=== PATIENT | male | born 1975 | race Caucasian/White ===

== ENCOUNTER 2023-04-29 10:09 | Inpatient (IN) | payer BC ==
[~2023-04-29] VITALS: Ht 180.3 cm; Wt 106.4 kg
[~2023-04-29 10:09] MED LIST: BACTRIM DS 8001 TAB PO; BENADRYL25 M1 PO; CLINDAMYCIN150 MG PO; FLAGYL500 MG PO; ZANTAC150 MG PO
[2023-05-12] MEDS ORDERED: Acetaminophen 500 MG TAB PO SCH (08:15)
[2023-05-12] MEDS ORDERED: Gabapentin 100 MG CAP PO SCH (08:15)
[2023-05-12] MEDS ORDERED: metroNIDAZOLE 500 MG/100 ML IVPB IV SCH (08:15)
[2023-05-12] MEDS ORDERED: Celecoxib 200 MG CAP PO SCH (08:15)
[2023-05-12] MEDS ORDERED: LR 1,000 ML IV SCH (09:45)
[2023-05-12] MEDS ORDERED: Ondansetron 4 MG/2 ML VIAL IV SCH (09:45)
[2023-05-12] MEDS ORDERED: Meclizine 25 MG TAB PO SCH (09:45)
[2023-05-12] MEDS ORDERED: Scopolamine 1 MG Delivered 3-Day PATCH TD SCH (09:45)
[2023-05-13] VITALS (9 sets, daily range): BP systolic 103–117; BP diastolic 68–76; PULSE 84–101
[2023-05-13] MEDS ORDERED: Ondansetron 4 MG/2 ML VIAL IV PRN ×2 (08:00→16:45)
[2023-05-13] MEDS ORDERED: fentaNYL 50 MCG/ML 2 ML VIAL IV PRN ×2 (08:00)
[2023-05-13] MEDS ORDERED: hydrALAZINE 20 MG/ML 1 ML VIAL IV PRN (08:00)
[2023-05-13] MEDS ORDERED: droPERidol 2.5 MG/ML 2 ML VIAL IV PRN (08:00)
[2023-05-13] MEDS ORDERED: HYDROmorphone 2 MG/1 ML VIAL IV PRN (08:00)
[2023-05-13] MEDS ORDERED: Midazolam 2 MG/2 ML VIAL ONE (11:00)
[2023-05-13] MEDS ORDERED: fentaNYL 50 MCG/ML 5 ML VIAL ONE (11:00)
[2023-05-13] MEDS ORDERED: Rocuronium 50 MG/5 ML Multi-Dose VIAL ONE ×2 (11:00→14:48)
[2023-05-13] MEDS ORDERED: NS 10 ML IV ONE (11:01)
[2023-05-13] MEDS ORDERED: Ondansetron 4 MG/2 ML VIAL ONE (11:01)
[2023-05-13] MEDS ORDERED: dexAMETHasone 10 MG/ML VIAL ONE (11:01)
[2023-05-13] MEDS ORDERED: FLAGYL500 MG PO (11:13)
[2023-05-13] MEDS ORDERED: NEOMYCIN S500 MG/TAB PO (11:13)
[2023-05-13 11:31] LABS: BASO # 0.1 K/mm3 (0.0-0.2); BASO % 0.6 % (0.0-2.0); EOS # 0.2 K/mm3 (0.0-0.7); EOS % 1.6 % (0.0-4.0); GRAN # 8.1 K/mm3 (1.4-6.5); GRAN % 74.6 % (42.2-75.2); HEMATOCRIT 46.4 % (42.0-52.0); HEMOGLOBIN 16.2 g/dl (13.5-18.0); LYMPH # 1.6 K/mm3 (1.2-3.4); LYMPH % 15.1 % (20.0-51.0); MEAN CELL VOLUME 87 fl (80.0-100.0); MEAN CORPUSCULAR HEMOGLOBIN 30 pg (27-31); MEAN CORPUSCULAR HGB CONC 35 g/dl (33.0-37.0); MEAN PLATELET VOLUME 9.6 fl (7.4-10.4); MONO # 0.9 K/mm3 (0.1-0.6); MONO % 7.9 % (1.7-9.3); PLATELET COUNT 279 K/mm3 (130-400); RED BLOOD COUNT 5.36 M/mm3 (4.20-5.60); REDCELL DISTRIBUTION WIDTH-CV 13.1 % (11.5-14.5)
[2023-05-13 11:44] LABS: CREATININE, serum 0.87 mg/dL (0.72-1.25); POTASSIUM 4.1 mmol/L (3.5-4.5)
[2023-05-13] MEDS ORDERED: Phenylephrine 10 MG/ML VIAL ONE (12:36)
[2023-05-13] MEDS ORDERED: NS 100 ML IV ONE (12:36)
--- NOTE | 2023-05-13 14:36 | NUR ---
1045 Pt ambulatory to bay 1 with a steady gait, breathing even and unlabored. Pt is alert and oriented, accompanied by his girlfriend and twin sister. Consents reviewed and signed by pt. IV established. LR infusing via dial a flow at 100ml/hr. Call light in reach. Warm blankets provided.
[2023-05-13] MEDS ORDERED: fentaNYL 50 MCG/ML 2 ML VIAL ONE (15:35)
[2023-05-13] MEDS ORDERED: Morphine 4 MG/ML VIAL IV PRN (16:45)
[2023-05-13] MEDS ORDERED: oxyCODONE 5 MG TAB PO PRN ×2 (16:45)
[2023-05-13] MEDS ORDERED: LR 1,000 ML IV SCH (16:45)
[2023-05-13] MEDS ORDERED: Naloxone 0.4 MG/ML VIAL IV PRN (16:45)
[2023-05-13] MEDS ORDERED: Acetaminophen 500 MG TAB PO SCH (16:52)
--- NOTE | 2023-05-13 16:58 | NUR ---
PATIENT TO FLOOR AT APPROXIMATLY 1650. PATIENT DROWSY, BUT AROUSABLE. LAP SITES X4 WITH BANDAIDS, ONE LOW TRANSVERSE WITH METAPOR TAPE, CDI. BARRETT TO DD WITH SADA OUTPUT. SCDS APPLIED. INTAKE PERFORMED. ASSESSMENT PERFORMED. POST OP VITALS RUNNING. NO FURTHER NEEDS. CALL LIGHT IN REACH.
--- NOTE | 2023-05-13 19:47 | NUR ---
report received from lidia cruz. pt resting in bed, equal and unlabored breaths noted. pt remains on post op vitals wnl. call light in reach. all needs met at this time.
[2023-05-13] MEDS ORDERED: Celecoxib 200 MG CAP PO SCH (21:00)
[2023-05-14] VITALS (13 sets, daily range): BP systolic 97–125; BP diastolic 67–78; PULSE 94–113; TEMP 97.9–99.3
--- NOTE | 2023-05-14 01:14 | NUR ---
shift assessment complete, see documentation. pt vss. post op vitals complete. pt c/o intense abd pain rated 9/10. prn morphine administered at 2000. pt did find relief after prn but began c/o increased abd pain again rated an 8/10. prn oxycodone administered per orders at 2303. pt now resting with minimal pain. call light in reach. all needs met at this time.
--- NOTE | 2023-05-14 02:44 | NUR ---
pt reporting increased abd pain and nausea. prn morphine and zofran administered per orders. pt did vomit once with no blood. after vomiting, pt reported he no longer has the urge but is feeling the pain. pt vss. pt ambulated the waggoner with sba. pt had unsteady gait at first but slowly began getting his footing. pt made it approximately 30 feet before requesting to turn around. pt now back in bed. call light in reach. all needs met at this time.
--- NOTE | 2023-05-14 06:53 | NUR ---
pt reporting increased pain and rating it 4/10. prn requested. prn oxycodone administered per orders. call light in reach. all needs met at this time.
--- NOTE | 2023-05-14 08:15 | NUR ---
Pt. sitting up in bed. Pt. is A&OX3, assessment complete. IV to lt. hand patent, IV fluids stopped at this time. Pt. tolerating Clear liquid diet. Orders to discontinue west catheter. FIELD REIMBURSEMENT MANAGER student from [facility] removed west catheter under this nurse's supervision. Pt. tolerated well. Pt. then ambulated in the waggoner. Minimal assist with standing and independent with ambulation. See Pain scale and mar for intervientions on pain. Pt. sitting in chair after ambulation. Pt. denies further needs, call light within reach.
[2023-05-14 08:35] LABS: HEMATOCRIT 41.2 % (42.0-52.0)
[2023-05-14 08:54] LABS: CALCIUM 9.2 mg/dL (8.4-10.2); CREATININE, serum 0.83 mg/dL (0.72-1.25); POTASSIUM 4.2 mmol/L (3.5-4.5)
--- NOTE | 2023-05-14 10:37 | NUR ---
Orchestra Teacher met with patient to discuss discharge planning. Patient lives in [place] with his life partner, Annetta (ph#[phone]) who is at bedside. Patient sees Dr. Mayo for primary care and obtains medications from [facility] with no difficulties. Patient does not use any DME and is independent with ADLS. Patient is employed by [employer]. SW discussed Advance Directives with patient and he stated the person he previously designated as DPOA-HC is now so he would like to complete a new form. SW assisted patient in completing a new form and patient chose to designate Annetta. JACE and JACE Trujillo provided witness signature. JACE placed a copy in chart then provided original and copies to patient. Discharge Plan; Home
--- NOTE | 2023-05-14 13:19 | NUR ---
Initial visit; Patient thanked Unhairer for looking in on him and would like to be included in Unhairer's prayers. Patient had a good support system with his and mother present.
--- NOTE | 2023-05-14 20:01 | NUR ---
report received from sharmila cruz. pt resting in bed watching tv. call light in reach. all needs met at this time.
--- NOTE | 2023-05-14 20:30 | NUR ---
pt c/o increased abd pain. pt requested tylenol for 4/10 pain. too early for scheduled tylenol. prn oxycodone administered per orders. pt ambulated halls with sba and steady gait. pt tolerated ambulation well. pt now back in bed. call light in reach. all needs met at this time.
--- NOTE | 2023-05-14 20:34 | NUR ---
shift assessment complete, see documentation. call light in reach. all needs met at this time.
[2023-05-15] VITALS (12 sets, daily range): BP systolic 102–124; BP diastolic 70–83; PULSE 102–108; TEMP 97.8–98.5
--- NOTE | 2023-05-15 05:03 | NUR ---
pt doing well tonight. pt ambulating ind with steady gait. pt rating pain a stable 3/10. pt reporting scheduled tylenol has been controlling pain. pt also reporting now passing gas and having a BM. call light in reach. all needs met at this time.
[2023-05-15 06:57] LABS: BASO % 0.3 % (0.0-2.0); EOS % 0.1 % (0.0-4.0); GRAN # 9.8 K/mm3 (1.4-6.5); GRAN % 85.2 % (42.2-75.2); HEMATOCRIT 38.1 % (42.0-52.0); HEMOGLOBIN 13.1 g/dl (13.5-18.0); LYMPH # 0.8 K/mm3 (1.2-3.4); LYMPH % 7.2 % (20.0-51.0); MEAN CELL VOLUME 88 fl (80.0-100.0); MEAN CORPUSCULAR HEMOGLOBIN 30 pg (27-31); MEAN CORPUSCULAR HGB CONC 34 g/dl (33.0-37.0); MEAN PLATELET VOLUME 9.8 fl (7.4-10.4); MONO # 0.8 K/mm3 (0.1-0.6); MONO % 6.8 % (1.7-9.3); PLATELET COUNT 194 K/mm3 (130-400); RED BLOOD COUNT 4.34 M/mm3 (4.20-5.60)
--- NOTE | 2023-05-15 13:21 | NUR ---
PT UP AMBULATING IN HALLS INDEPENDENTLY. PT REPORTING EMESIS. TOO EARLY FOR NEXT DOSE OF ZOFRAN. SPRITE AND SODA CRACKERS PROVIDED.
[2023-05-16] VITALS (9 sets, daily range): BP systolic 100–116; BP diastolic 70–78; PULSE 92–96; TEMP 97.2–98.5
--- NOTE | 2023-05-16 04:10 | NUR ---
NURSING SHIFT ASSESSMENT COMPLETED. THE PATIENT WAS ALERT AND ORIENTED. THE PATIENT REPORTED ABD PAIN WITH ACTIVITY 08/31. PRN PAIN MEDICATIONS AND SCHEDULE REVIEWED. THE PATIENT HAD N/V DURING THE DAY AND ZOFRAN WAS PROVIDED. WILL MONITOR. THE PATIENT IS UP INDEPENDENTLY IN THE ROOM WITH A STEADY GAIT. CALL LIGHT AVAILABLE. BED IN LOW POSITION.
[2023-05-16 06:22] LABS: BASO % 0.2 % (0.0-2.0); EOS % 0.3 % (0.0-4.0); GRAN # 7.4 K/mm3 (1.4-6.5); GRAN % 77.1 % (42.2-75.2); HEMOGLOBIN 12.3 g/dl (13.5-18.0); LYMPH # 1.4 K/mm3 (1.2-3.4); LYMPH % 14.8 % (20.0-51.0); MEAN CELL VOLUME 88 fl (80.0-100.0); MEAN CORPUSCULAR HEMOGLOBIN 30 pg (27-31); MEAN CORPUSCULAR HGB CONC 34 g/dl (33.0-37.0); MEAN PLATELET VOLUME 9.9 fl (7.4-10.4); MONO # 0.7 K/mm3 (0.1-0.6); MONO % 7.4 % (1.7-9.3); PLATELET COUNT 208 K/mm3 (130-400); RED BLOOD COUNT 4.12 M/mm3 (4.20-5.60); REDCELL DISTRIBUTION WIDTH-CV 13.2 % (11.5-14.5)
[2023-05-16 06:32] LABS: HEMATOCRIT 36.2 % (42.0-52.0)
[2023-05-16 06:39] LABS: CALCIUM 9.1 mg/dL (8.4-10.2); CREATININE, serum 0.76 mg/dL (0.72-1.25); POTASSIUM 3.9 mmol/L (3.5-4.5)
--- NOTE | 2023-05-16 09:45 | NUR ---
Patient resting in bed. rounded this am, Plan of care reviewed. Patient aware to not eat until after scan. He denies nausea at this time. Continues to have pain to left side of abdomen. Not wanting to take pain medication at this time. He ambulated halls independently. Will monitor
[2023-05-16] MEDS ORDERED: NS 100 ML IV SCH (11:37)
[2023-05-16] MEDS ORDERED: Iohexol 300 - 100 ML VIAL IV ONE (11:37)
--- NOTE | 2023-05-16 13:40 | NUR ---
Patient resting in bed. He ambulated halls with significant other. Continue to encourage activity. I discussed using IS, he was not thrilled. was called and made aware that CT scan completed, he verfied patient can eat. Patient ate a small lunch, without nausea, but reports feeling full fast. We discussed smaller more frequest meals. Patient agreeable to taking tylenol, we discussed not taking medications on an empty stomch to avoid nausea. Patient given his Lovenox injection, was late due to awaiting CT scan to be completed. Patient also reports bowel activity with flatus and BM. Will monitor
--- NOTE | 2023-05-16 17:46 | NUR ---
rounded and discharge orders obtained. Patient ready to get home. His significant other taking him. All discharge education reviewed. We reviewed incision cares. Activity restrictions reviwed. Patient aware of imporance of nutrition and low fiber diet. Patient wheeled out with all belongings. IV DC. Patient aware [facility] need [facility] and calling for questions and or concerns.
== END 2023-05-16 17:49 | disposition home or self-care (01) | DRG 331 ==
LOC: SURG 05-13 10:19 → INPTSU 05-13 10:19 → SURG 05-13 12:30
PROVIDERS: Nurse Anesthetist, Certified Registered; ADMIT Surgery
PROC: 0DNL4ZZ Release Transverse Colon, Percutaneous Endoscopic Approach (ICD-10-PCS; 2023-05-13)
PROC: 0DBG4ZZ Excision of Left Large Intestine, Percutaneous Endoscopic Approach (ICD-10-PCS; principal; 2023-05-13 12:30)
DX: K57.20 Diverticulitis of large intestine with perforation and abscess without bleeding (principal); Z88.1 Allergy status to other antibiotic agents; Z88.0 Allergy status to penicillin
CPT/HCPCS: A4314; A9284; J0690; J1100; J1650; J1836; J2250; J2270; J2371; J2405; J2704; J2795; J3010; J7120; Q9967

== ENCOUNTER 2023-11-24 17:43 | Inpatient (IN) | payer BC ==
[~2023-11-24] VITALS: Ht 180.3 cm; Wt 103.3 kg
[~2023-11-24 17:43] MED LIST changes: +NEOMYCIN S500 MG/TAB PO
[2023-11-24] MEDS ORDERED: fentaNYL 50 MCG/ML 2 ML VIAL IV ONE ×2 (18:00→21:30)
[2023-11-24 18:09] LABS: BASO # 0.1 K/mm3 (0.0-0.2); BASO % 0.8 % (0.0-2.0); EOS # 0.3 K/mm3 (0.0-0.7); EOS % 3.2 % (0.0-4.0); GRAN # 3.8 K/mm3 (1.4-6.5); GRAN % 45.3 % (42.2-75.2); HEMATOCRIT 40.8 % (42.0-52.0); HEMOGLOBIN 13.6 g/dl (13.5-18.0); LYMPH # 3.4 K/mm3 (1.2-3.4); LYMPH % 40.9 % (20.0-51.0); MEAN CELL VOLUME 90 fl (80.0-100.0); MEAN CORPUSCULAR HEMOGLOBIN 30 pg (27-31); MEAN CORPUSCULAR HGB CONC 33 g/dl (33.0-37.0); MEAN PLATELET VOLUME 9.8 fl (7.4-10.4); MONO # 0.8 K/mm3 (0.1-0.6); MONO % 9.6 % (1.7-9.3); PLATELET COUNT 305 K/mm3 (130-400); RED BLOOD COUNT 4.53 M/mm3 (4.20-5.60); REDCELL DISTRIBUTION WIDTH-CV 12.3 % (11.5-14.5)
[2023-11-24 18:11] LABS: INR 1.1 (0.8-3.0); PROTHROMBIN TIME 12.1 SECONDS (9.7-12.8)
[2023-11-24 18:14] LABS: PARTIAL THROMBOPLASTIN TIME 34.3 SECONDS (26.0-37.0)
[2023-11-24 18:24] LABS: ALBUMIN 3.5 g/dL (3.5-5.0); BILIRUBIN,TOTAL 0.6 mg/dL (0.2-1.2); CALCIUM 9.2 mg/dL (8.4-10.2); MAGNESIUM 1.9 mg/dL (1.6-2.6); POTASSIUM 3.5 mEq/L (3.5-4.5); TOTAL PROTEIN 7.2 g/dl (6.2-8.1)
[2023-11-24 18:31] LABS: TROPONIN-I 0.01 ng/mL (0.00-0.033)
[2023-11-24] MEDS ORDERED: LORazepam 0.5 MG TAB PO ONE (21:00)
[2023-11-24] MEDS ORDERED: Iohexol 300 - 100 ML VIAL IV ONE (21:39)
[2023-11-24] MEDS ORDERED: NS 50 ML IV ONE (21:40)
[2023-11-24] MEDS ORDERED: Ondansetron 4 MG/2 ML VIAL IV ONE (23:00)
[2023-11-24] MEDS ORDERED: PROBIOTIC BLEN1 EACH PO (23:25)
[2023-11-24] MEDS ORDERED: LR 1,000 ML IV SCH (23:30)
[2023-11-24] MEDS ORDERED: HYDROmorphone 0.5 MG/0.5 ML SYRINGE IV PRN (23:30)
[2023-11-24] MEDS ORDERED: Ondansetron 4 MG/2 ML VIAL IV PRN (23:30)
--- NOTE | 2023-11-24 23:49 | NUR ---
RECIEVED PT FROM ED
[2023-11-25] VITALS (14 sets, daily range): BP systolic 99–171; BP diastolic 61–88; PULSE 62–83; TEMP 97.5–99.1
--- NOTE | 2023-11-25 01:12 | NUR ---
PT RECIEVED FROM ED. ASSESSMENT COMPLETED EARLIER. PT COMPLAINS OF 7/10 PAIN. SKIN IS CLEAN DRY AND INTACT WITH NO BREAKDOWN. MEDICATIONS ADMINISTERED PER EMAR. MOUTH SWABS IN ROOM WITH PATIENT. SONIYA CONTACTED AT [id number], THIS NURSE ASKED IF PT COULD HAVE ICE CHIPS, PROVIDER STATES THAT THE PT CAN HAVE ICE CHIPS VERY SPARINGLY. CALL LIGHT IS WITHIN REACH, BED IS IN LOWEST POSITON. NO COMPLAINTS AT THIS TIME. PT IS CURRENTLY IN BED.
--- NOTE | 2023-11-25 05:05 | NUR ---
PT IS IN BED. OVERNIGHT HAS BEEN UNEVENTFUL. CALL LIGHT IS WITHIN REACH. NO NEEDS AT THIS TIME.
[2023-11-25 06:21] LABS: BASO % 0.3 % (0.0-2.0); EOS # 0.1 K/mm3 (0.0-0.7); EOS % 0.6 % (0.0-4.0); GRAN # 10.1 K/mm3 (1.4-6.5); GRAN % 81.1 % (42.2-75.2); HEMATOCRIT 39.7 % (42.0-52.0); HEMOGLOBIN 13.4 g/dl (13.5-18.0); LYMPH # 1.2 K/mm3 (1.2-3.4); LYMPH % 9.5 % (20.0-51.0); MEAN CELL VOLUME 88 fl (80.0-100.0); MEAN CORPUSCULAR HEMOGLOBIN 30 pg (27-31); MEAN CORPUSCULAR HGB CONC 34 g/dl (33.0-37.0); MEAN PLATELET VOLUME 10.1 fl (7.4-10.4); MONO % 8.2 % (1.7-9.3); PLATELET COUNT 246 K/mm3 (130-400); RED BLOOD COUNT 4.49 M/mm3 (4.20-5.60); REDCELL DISTRIBUTION WIDTH-CV 12.3 % (11.5-14.5)
[2023-11-25 06:46] LABS: ALBUMIN 3.2 g/dL (3.5-5.0); BILIRUBIN,TOTAL 1.1 mg/dL (0.2-1.2); CREATININE, serum 0.79 mg/dL (0.72-1.25); POTASSIUM 3.8 mEq/L (3.5-4.5); TOTAL PROTEIN 6.6 g/dl (6.2-8.1)
--- NOTE | 2023-11-25 08:00 | NUR ---
PATIENT IS ORIENTED BUT DROWSY. FLAT AFFECT. VSS. REPORTS MILD ABD PAIN AND DENIES NEED FOR PAIN MEDS. ABD IS ROUND, SOFT AND WITH HYPOACTIVE BOWL SOUNDS. NO C/O N/V. IV FLUIDS INFUSING VIA PUMP INTO LEFT AC. HE REPORTS HE HAS PASSED A LITTLE GAS, NO BM. PATIENT RECENTLY DISCHARGED FROM A HOSPITAL IN [place] WITH A SBO. HEAD TO TOE ASSESSMENT COMPLETE. AM MEDS GIVEN, SEE MAR. NPO WITH SWABS. NO NG TUBE, JUST BOWL REST. NO OTHER NEEDS AT THIS TIME. CALL LIGHT IN REACH.
[2023-11-25] MEDS ORDERED: Pantoprazole 40 MG in NS 10 ML IV SCH (09:00)
--- NOTE | 2023-11-25 09:15 | NUR ---
gaming cage worker met with patient to discuss discharge planning. Patient lives in [place] with Annetta, P# [phone]. PCP is currently Dr. Mayo but he is wanting to switch to a provider in [place]. JACE provided list of options for PCP in [place] and explained if he wanted to switch before discharge they can get him established. Patient understood and would like social work or nursing know if he wanted to switch. Pharmacy is [facility] in [place]. No issues affording medications. DPOA-HC is in the EMR which lists Annetta as the agent. No DME, Patient reports to normally be independent with ADLS and has a form of transportation for appointments. Patient would like to return home at time of discharge. Patient stated his only concern about discharge is when the next flare up would be. JACE explained patient will have follow up appointments. Patient understood. Patient's sister came to visit at end of conversation, neither have any questions or concerns at this time. JACE notified patient's nurse about the potential for him wanting to be set up with a new doctor. Discharge plan: Home
--- NOTE | 2023-11-25 09:22 | NUR ---
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
--- NOTE | 2023-11-25 10:30 | NUR ---
PATIENT CALLED OUT AND REPORTED A SMALL, SOFTED BM. NURSING UNABLE TO OBSERVE HE FLUSHED IT.
--- NOTE | 2023-11-25 20:05 | NUR ---
PT IS RESTING IN BED, ALERT AND ORIENTEDX4. ASSESSED PT. NO COMPLAINTS OF PAIN AT THIS TIME. PT TOLERATING FULL LIQUID DIET. PASSING GAS. PT REPORTS LAST BOWEL MOVEMENT WAS A LITTLE BEFORE 1800. BOWEL SOUNDS ARE ACTIVE. LR IS RUNNING AT 75. NO OTHER COMPLAITS AT THIS TIME. CALL LIGHT WITHIN REACH.
[2023-11-26] VITALS (7 sets, daily range): BP systolic 90–100; BP diastolic 60–67; PULSE 53–63; TEMP 97.9–98.1
--- NOTE | 2023-11-26 | NUR ---
Received report from Nix Hydra.
--- NOTE | 2023-11-26 04:25 | NUR ---
Patient awake at this time, denies pain or discomfort, SBP 90's, denies dizziness, reports he feels tired, denies further needs, call light and personal items within reach, will continue to monitor.
[2023-11-26 07:26] LABS: BASO % 0.6 % (0.0-2.0); EOS # 0.3 K/mm3 (0.0-0.7); GRAN # 3.4 K/mm3 (1.4-6.5); GRAN % 52.4 % (42.2-75.2); HEMOGLOBIN 12.5 g/dl (13.5-18.0); LYMPH % 31.1 % (20.0-51.0); MEAN CELL VOLUME 88 fl (80.0-100.0); MEAN CORPUSCULAR HEMOGLOBIN 30 pg (27-31); MEAN CORPUSCULAR HGB CONC 34 g/dl (33.0-37.0); MEAN PLATELET VOLUME 10.3 fl (7.4-10.4); MONO # 0.7 K/mm3 (0.1-0.6); MONO % 10.7 % (1.7-9.3); PLATELET COUNT 245 K/mm3 (130-400); REDCELL DISTRIBUTION WIDTH-CV 12.5 % (11.5-14.5)
[2023-11-26 07:27] LABS: HEMATOCRIT 36.9 % (42.0-52.0)
[2023-11-26 07:34] LABS: ALBUMIN 2.9 g/dL (3.5-5.0); BILIRUBIN,TOTAL 0.7 mg/dL (0.2-1.2); CALCIUM 8.8 mg/dL (8.4-10.2); CREATININE, serum 0.78 mg/dL (0.72-1.25); POTASSIUM 3.9 mEq/L (3.5-4.5); TOTAL PROTEIN 6.1 g/dl (6.2-8.1)
[2023-11-26] MEDS ORDERED: PROTONIX 40MG T40 MG PO (12:59)
[2023-11-26] MEDS ORDERED: ZOFRAN 4MG T4 MG/TAB PO (13:54)
--- NOTE | 2023-11-26 14:10 | NUR ---
Pt. with discharge orders. INT discontinued from lt. ac. Reviewed and gave discharge packet to the pt. Pt. voices understanding. Pt. dressed and escorted out.
== END 2023-11-26 14:12 | disposition home or self-care (01) | DRG 390 ==
LOC: COL.ER 17:43 → SURG 22:52
PROVIDERS: Family Medicine; Nurse Practitioner Family; ADMIT Internal Medicine
DX: K56.609 Unspecified intestinal obstruction, unspecified as to partial versus complete obstruction (principal); G89.29 Other chronic pain; F17.210 Nicotine dependence, cigarettes, uncomplicated; M54.9 Dorsalgia, unspecified; K21.9 Gastro-esophageal reflux disease without esophagitis; R79.89 Other specified abnormal findings of blood chemistry; K76.0 Fatty (change of) liver, not elsewhere classified; I95.9 Hypotension, unspecified; D64.9 Anemia, unspecified; Z87.19 Personal history of other diseases of the digestive system; Z90.49 Acquired absence of other specified parts of digestive tract; Z88.1 Allergy status to other antibiotic agents; Z88.0 Allergy status to penicillin
CPT/HCPCS: J0780; J1170; J2405; J2470; J3010; J7120; Q9967